=== PATIENT | male | born 1950 | race Caucasian/White ===

== ENCOUNTER 2023-05-26 12:59 | Outpatient (CLI) | payer MEDICARE ==
[2023-05-26 14:56] LABS: INR-International Normal Ratio 1.1; PTT 27.2 sec (22.0-33.0); Prothrombin Time 11.9 sec (9.5-12.1)
[2023-05-26 15:15] LABS: ALT (SGPT) 40 U/L (8-55); AST (SGOT) 32 U/L (5-34); Albumin 4.2 g/dL (3.4-4.8); Alkaline Phosphatase 248 U/L (40-110); Anion Gap 14 mmol/L (10-20); BUN (Urea Nitrogen) 26 mg/dL (8.4-25.7); Bilirubin, Direct 0.2 mg/dL (0.1-0.3); Bilirubin, Total 0.4 mg/dL (0.2-1.2); Calc. Creatinine Clearance 0 mL/min (70-130); Calcium 9.2 mg/dL (7.8-10.44); Carbon Dioxide 22 mmol/L (23-31); Chloride 106 mmol/L (98-107); Estimated GFR 92; Glucose 93 mg/dL (83-110); Hematocrit 29.8 % (38.8-50.0); Mean Corpuscular HGB CONC 30.2 g/dL (32.0-36.0); Mean Corpuscular Hemoglobin 22.2 pg (27.0-33.0); Mean Corpuscular Volume 73.4 fl (81.2-95.1); Mean Platelet Volume 10.8 fl (7.4-10.4); Platelet Count 341 10x3/uL (150-450); Potassium 4.2 mmol/L (3.5-5.1); Protein, Total 6.5 g/dL (5.8-8.1); RBC Distribution Width 19.8 % (11.5-14.5); Red Blood Cell (RBC) Count 4.06 10x6/uL (4.32-5.72); Sodium 138 mmol/L (136-145); White Blood Cell (WBC) Count 9.8 10x3/uL (3.5-10.5)
== END 2023-05-26 13:00 | disposition home or self-care (01) ==
LOC: CSHLAB 12:59
PROVIDERS: ATTEND Surgery
DX: Z01.818 Encounter for other preprocedural examination (principal); C17.0 Malignant neoplasm of duodenum
CPT/HCPCS: 80048; 80076; 85027; 85610; 85730; 93005; 93010

== ENCOUNTER 2023-05-30 05:36 | Day surgery (SDC) | payer MEDICARE ==
[2023-05-26 14:03] VITALS: BMI 21.9
[2023-05-30] MEDS ORDERED: EPINEPHrine 1 MG/ML VIAL ONE (06:11)
[2023-05-30] MEDS ORDERED: CEFAZOLIN 2 GM VIAL ONE (06:11)
[2023-05-30] MEDS ORDERED: Bupivacaine PF 0.5% 30 ML VIAL ONE (06:11)
[2023-05-30] MEDS ORDERED: Dexamethasone 20 MG/5 ML VIAL ONE (06:23)
[2023-05-30] MEDS ORDERED: PROPOFOL 20 ML ONE (06:23)
[2023-05-30] MEDS ORDERED: fentaNYL 50 mcg/mL 1 mL Vial ONE (06:23)
[2023-05-30] MEDS ORDERED: Lidocaine 1% PF 5 ML VIAL ONE (06:23)
[2023-05-30] MEDS ORDERED: Ondansetron PF 4 MG/2 ML Vial ONE (06:23)
[2023-05-30] MEDS ORDERED: Midazolam HCl 2 mg/2 ml Vial ONE (06:23)
[2023-05-30] MEDS ORDERED: HYDROcodone/Acetaminophen 5/325 mg Tablet PO PRN (07:25)
[2023-05-30] MEDS ORDERED: Acetaminophen 325 MG TAB PO PRN (07:25)
== END 2023-05-30 08:05 | disposition home or self-care (01) ==
LOC: CSHSDC 05:36
PROVIDERS: ATTEND Surgery
PROC: 0JH60WZ Insertion of Totally Implantable Vascular Access Device into Chest Subcutaneous Tissue and Fascia, Open Approach (ICD-10-PCS; principal; 2023-05-30)
DX: C17.0 Malignant neoplasm of duodenum (principal); D53.9 Nutritional anemia, unspecified
CPT/HCPCS: 36561; 71045; J0171; J3010; C1788; J1100; J1642; J2250; J2405; J2704; S0020